=== PATIENT | male | born 1980 | race Caucasian/White ===

== ENCOUNTER 2024-06-18 13:53 | Emergency (ER) | payer BC ==
[2024-06-18] MEDS ORDERED: KETOROLAC 30 MG/ML INJ ONE (14:11)
[2024-06-18] MEDS ORDERED: MORPHINE 4 MG/ML SYR ONE (14:11)
[2024-06-18] MEDS ORDERED: ONDANSETRON 4 MG/2 ML VIAL ONE (14:11)
[2024-06-18] MEDS ORDERED: NA CHLORIDE 0.9% 1,000 ML ONE (14:12)
[2024-06-18 14:25] LABS: Absolute Eosinophils 0.1 K/uL (0-0.5); Absolute Lymphocytes (CBC) 1.2 K/uL (0.7-4.9); Absolute Monocytes 0.5 K/uL (0.1-1.3); Absolute Neutrophil 8.4 K/uL (1.8-8.0); Basophils % 0.4 % (0-1.3); Eosinophils % 0.8 % (0-4.4); Hematocrit 45.1 % (39.6-49.0); Hemoglobin 15.4 g/dL (13.6-17.9); MCH 28.9 pg (27.0-35.0); MCHC 34.1 g/dL (32.0-36.0); MCV 84.6 fL (80-100); MPV 8.4 fL (7.6-11.3); Monocytes % 4.7 % (3.3-12.3); Neutrophils % 82.1 % (41.7-73.7); Nucleated Red Blood Cells % 0.1 % (0-0); Platelets 195 thou/uL (152-406); RBC Red Blood Cell Count 5.32 M/uL (4.33-5.43); Red Cell Distribution Width 13.2 % (12.1-15.2)
[2024-06-18 14:41] LABS: Albumin 4.3 g/dL (3.4-5.0); Albumin/Globulin Ratio 1.5 (1.1-1.8); Bilirubin Total 0.5 mg/dL (0.2-1.0); Globulin 2.9 g/dL (2.3-3.5); Protein, Total 7.2 g/dL (6.4-8.2)
--- NOTE | 2024-06-18 15:25 | RAD REPORT ---
EXAM DESCRIPTION: CT - Stone Protocol - 06/18/2024 2:41 pm CLINICAL HISTORY: Abdominal pain. Left flank pain COMPARISON: None. TECHNIQUE: Computed axial tomography of the abdomen pelvis was obtained without oral or IV contrast. Lack of IV and oral contrast limits evaluation of solid organs, appendix, bowel, and vessels. Lisa l reformatted images were obtained and reviewed. All CT scans are performed using dose optimization technique as appropriate and may include automated exposure control or mA/KV adjustment according to patient size. FINDINGS: Small calculus right kidney. No hydronephrosis. Multiple left renal calculi. Mild to moderate hydronephrosis. 2 millimeter calculus mid left ureter. Additional 5 millimeter calculus lies adjacent to this. The liver, spleen, pancreas and adrenals appear grossly normal There is no evidence of diverticulitis. The appendix appears normal Small umbilical hernia IMPRESSION: Left ureteral calculi resulting in mild to moderate hydronephrosis
[2024-06-18] MEDS ORDERED: HYDROMORPHONE HCL 0.5 MG/0.5 ML INJ ONE (15:43)
[2024-06-18 17:16] LABS: Specific Gravity 1.022 (1.005-1.030); Sqamous Epithelial None Seen /HPF (None Seen); Urine Bacteria None Seen /HPF (<20); Urine Bilirubin NEGATIVE (Negative); Urine Blood 3+ (Negative); Urine Clarity Turbid (Clear); Urine Color Light-Yellow (Yellow); Urine Culture Reflex Order NOT NEEDED; Urine Glucose NEGATIVE (Negative); Urine Ketones NEGATIVE (Negative); Urine Microscopic Reflex YN ORDER UMIC; Urine Mucus 1+ /HPF (None Seen); Urine Nitrite NEGATIVE (Negative); Urine Protein TRACE (Negative); Urine RBC >50 /HPF (None Seen); Urine Urobilinogen Normal (Normal); Urine WBC <5 /HPF (<5)
--- NOTE | 2024-06-18 17:24 | ER ---
Nurse's Notes [facility] Name: Raymon Friedman Age: 44 yrs Sex: Male : 1980 Arrival Date: 06/18/2024 Time: 13:53 Bed 16 Private MD: Diagnosis: Calculus of kidney with calculus of ureter Presentation: 06/18 14:03 Chief complaint: Spouse and/or significant other states: patient has a history of ap3 kidney stones, and has been having left flank and left lower abdominal pain since 1000 this morning. patient also has been having nausea and vomiting along with the pain. Coronavirus screen: At this time, the client does not indicate any symptoms associated with coronavirus-19. Ebola Screen: No symptoms or risks identified at this time. Initial Sepsis Screen: Does the patient meet any 2 criteria? No. Patient's initial sepsis screen is negative. Does the patient have a suspected source of infection? No. Patient's initial sepsis screen is negative. Risk Assessment: Do you want to hurt yourself or someone else? Patient reports no desire to harm self or others. Onset of symptoms was June 18, 2024 at 10:00. 14:03 Method Of Arrival: Ambulatory ap3 14:03 Acuity: DMITRIY 3 ap3 Triage Assessment: 14:05 General: Appears uncomfortable, Behavior is calm, cooperative, appropriate for age. ap3 Pain: Complains of pain in left lower abdomen, left flank Pain currently is 10 out of 10 on a pain scale. Neuro: Level of Consciousness is awake, alert, obeys commands, Oriented to person, place, time, situation, Appropriate for age. Cardiovascular: Patient's skin is warm and dry. Respiratory: Airway is patent Respiratory effort is even, unlabored, Respiratory pattern is regular, symmetrical. GI: Reports nausea, vomiting. : Reports pain in left flank(s). Historical: - Allergies: 14:05 No Known Allergies; ap3 - PMHx: 14:05 Kidney stone; ap3 - Immunization history:: Client reports receiving the 2nd dose of the Covid vaccine. - Infectious Disease History:: Denies. - Social history:: Smoking status: Patient denies any tobacco usage or history of. Screenin: [facility] ED Fall Risk Assessment (Adult) History of falling in the last 3 months, db including since admission No falls in past 3 months (0 pts) Confusion or Disorientation No (0 pts) Intoxicated or Sedated No (0 pts) Impaired Gait No (0 pts) Mobility Assist Device Used No (0 pt) Altered Elimination No (0 pt) Score/Fall Risk Level 0 - 2 = Low Risk Oriented to surroundings, Maintained a safe environment. Abuse screen: Denies threats or abuse. Denies injuries from another. Nutritional screening: No deficits noted. Tuberculosis screening: No symptoms or risk factors identified. Assessment: 15:43 Reassessment: PT AMBULATORY TO RESTROOM . INSTRUCTED TO OBTAIN URINE SPECIMEN. db Vital Signs: 14:03 BP 139 / 92; Pulse 72; Resp 17; Temp 98.2; Pulse Ox 100% ; Weight 82.55 kg; Height 5 ap3 ft. 7 in. ; Pain 10/10; 15:00 BP 118 / 78; Pulse 80; Resp 16; Pulse Ox 100% on R/A; db 15:30 BP 118 / 79; Pulse 79; Resp 16; Pulse Ox 97% on R/A; db 16:00 BP 127 / 91; Pulse 86; Resp 16; Pulse Ox 96% on R/A; db 16:30 BP 132 / 90; Pulse 86; Resp 16; Pulse Ox 96% on R/A; db 17:00 BP 124 / 84; Pulse 77; Resp 16; Pulse Ox 96% on R/A; db 14:03 Body Mass Index 28.50 (82.55 kg, 170.18 cm) ap3 14:03 Pain Scale: Adult ap3 ED Course: 13:56 Patient arrived in ED. im 13:57 Theresa Tinoco [facility]NP-C [facility]. kb 13:57 Yariel Khanna MD is Attending Physician. kb 14:05 Triage completed. ap3 14:09 Kathie Wyatt, AUGUSTINE is Primary Nurse. db 14:18 Inserted saline lock: 20 gauge in right antecubital area, using aseptic technique. ld1 Blood collected. Flushed with 10 mL NS. 14:21 Patient has correct armband on for positive identification. Bed in low position. Call db light in reach. Side rails up X 1. Pulse ox on. NIBP on. Pillow given. 14:42 CT Stone Protocol In Process Unspecified. EDMS 16:00 Urine collected: clean catch specimen. db Administered Medications: 14:06 Drug: NS 0.9% IV 1000 ml IV at 1 bolus Per protocol; 1000 mL bolus Route: IV; Rate: 1 db bolus; Site: right antecubital; 15:47 Follow up: Response: No adverse reaction; IV Status: Completed infusion; IV Intake: db 1000ml 14:08 Drug: Ondansetron IVP 4 mg IVP once; over 2 minutes Route: IVP; Site: right antecubital;db 14:10 Drug: TORadol - Ketorolac IVP 15 mg IVP once Route: IVP; Site: right antecubital; db 14:10 Drug: morphine IVP or IV 4 mg IVP once over 4 mins Route: IVP; Infused Over: 4 mins; db Site: right antecubital; 16:05 Drug: HYDROmorphone IVP 0.5 mg IVP once Route: IVP; Site: left antecubital; db 17:35 Drug: [place] PO 10 mg-325 mg 1 tabs PO once Route: PO; db Medication: 14:21 VIS not applicable for this client. db Intake: 15:47 IV: 1000ml; Total: 1000ml. db Outcome: 17:23 Discharge ordered by . andrés 17:39 Discharged to home ambulatory, with family, tl4 17:39 Condition: stable 17:39 Discharge instructions given to patient, Instructed on discharge instructions, follow up and referral plans. medication usage, Demonstrated understanding of instructions, follow-up care, medications, Prescriptions given X 1, 17:39 Patient left the ED. tl4 Signatures: Dispatcher [employer] EDAZ Theresa Tinoco, DARIUS-C SECURITY SUPERVISOR-Nneka Broussard RN RN ap3 Trish Peres RN RN ld1 Kathie Wyatt, RN RN Jenny Rodriguez Toni RN RN tl4
--- NOTE | 2024-06-18 17:24 | EDPHYS ---
Physician Documentation [facility] Name: Raymon Friedman Age: 44 yrs Sex: Male : 1980 Arrival Date: 06/18/2024 Time: 13:53 Bed 16 Private MD: ED Physician Yariel Khanna HPI: 06/18 15:42 This 44 yrs old Male presents to ER via Ambulatory with complaints of Possible Kidney kb Stone. 15:42 Pt is a 44 year old male who presents for left flank pain that started this morning. kb States he had lithotripsy in March and has been passing small stones since then. States he passed 2 stones earlier this week. Denies fever. States he has had nausea and vomiting due to pain. . Historical: - Allergies: 14:05 No Known Allergies; ap3 - PMHx: 14:05 Kidney stone; ap3 - Immunization history:: Client reports receiving the 2nd dose of the Covid vaccine. - Infectious Disease History:: Denies. - Social history:: Smoking status: Patient denies any tobacco usage or history of. ROS: 15:41 Constitutional: As per HPI kb Exam: 15:41 Constitutional: This is a well developed, well nourished patient who is awake, alert, kb and in no acute distress. Head/Face: Normocephalic, atraumatic. ENT: Moist Mucous membranes Cardiovascular: Regular rate Respiratory: Respirations even and unlabored. No increased work of breathing. Talking in full sentences Skin: Warm, dry with normal turgor. Normal color. MS/ Extremity: Pulses equal, no cyanosis. Neurovascular intact. Full, normal range of motion. Neuro: Awake and alert, GCS 15, oriented to person, place, time, and situation. Moves all extremities. Normal gait. 15:41 Abdomen/GI: Palpation: mild abdominal tenderness, in the anterior aspect of left lateral abdomen, 15:41 Back: CVA tenderness, that is mild, is noted on the left, Vital Signs: 14:03 BP 139 / 92; Pulse 72; Resp 17; Temp 98.2; Pulse Ox 100% ; Weight 82.55 kg; Height 5 ap3 ft. 7 in. ; Pain 10/10; 15:00 BP 118 / 78; Pulse 80; Resp 16; Pulse Ox 100% on R/A; db 15:30 BP 118 / 79; Pulse 79; Resp 16; Pulse Ox 97% on R/A; db 16:00 BP 127 / 91; Pulse 86; Resp 16; Pulse Ox 96% on R/A; db 16:30 BP 132 / 90; Pulse 86; Resp 16; Pulse Ox 96% on R/A; db 17:00 BP 124 / 84; Pulse 77; Resp 16; Pulse Ox 96% on R/A; db 14:03 Body Mass Index 28.50 (82.55 kg, 170.18 cm) ap3 14:03 Pain Scale: Adult ap3 MDM: 13:57 Patient medically screened. kb 15:42 Differential diagnosis: uti, pyelonephritis, kidney stone, diverticulitis. Data kb reviewed: vital signs, nurses notes. Historians other than the Patient: Spouse/Significant Other: . 17:22 Consideration of Admission/Observation Escalation of care including kb admission/observation considered. admission considered but pain is controlled at this time. Pt has hydrocodone at home for pain prescribed by urologist in [place]. Pt will follow up with him. . Counseling: I had a detailed discussion with the patient and/or guardian regarding the historical points, exam findings, and any diagnostic results supporting the discharge/admit diagnosis, lab results, radiology results, the need for outpatient follow up, a urologist, to return to the emergency department if symptoms worsen or persist or if there are any questions or concerns that arise at home. 06/18 14:03 Order name: CBC with Diff; Complete Time: 14:42 kb 06/18 14:03 Order name: CMP; Complete Time: 14:42 kb 06/18 14:03 Order name: Lipase; Complete Time: 14:42 kb 06/18 14:03 Order name: Urinalysis w/ reflexes; Complete Time: 17:16 kb 06/18 14:03 Order name: CT Stone Protocol; Complete Time: 15:27 kb 06/18 14:03 Order name: IV Saline Lock; Complete Time: 14:18 kb 06/18 14:03 Order name: Labs collected and sent; Complete Time: 14:18 kb 06/18 16:24 Order name: Misc. Order: obtain urine please; Complete Time: 16:34 kb Administered Medications: 14:06 Drug: NS 0.9% IV 1000 ml IV at 1 bolus Per protocol; 1000 mL bolus Route: IV; Rate: 1 db bolus; Site: right antecubital; 15:47 Follow up: Response: No adverse reaction; IV Status: Completed infusion; IV Intake: db 1000ml 14:08 Drug: Ondansetron IVP 4 mg IVP once; over 2 minutes Route: IVP; Site: right antecubital;db 14:10 Drug: TORadol - Ketorolac IVP 15 mg IVP once Route: IVP; Site: right antecubital; db 14:10 Drug: morphine IVP or IV 4 mg IVP once over 4 mins Route: IVP; Infused Over: 4 mins; db Site: right antecubital; 16:05 Drug: HYDROmorphone IVP 0.5 mg IVP once Route: IVP; Site: left antecubital; db 17:35 Drug: [place] PO 10 mg-325 mg 1 tabs PO once Route: PO; db Disposition: 19:11 Co-signature as Attending Physician, Yariel Khanna MD I reviewed the patient's care rt provided by the Advanced Practice Provider and agree with the diagnosis and treatment plan. Disposition Summary: 06/18/24 17:23 Discharge Ordered Notes: Location: Home kb Condition: Stable kb Diagnosis - Calculus of kidney with calculus of ureter kb Followup: kb - With: Emergency Department - When: As needed - Reason: Worsening of condition Followup: kb - With: Private Physician - When: 2 - 3 days - Reason: Recheck today's complaints, Continuance of care, Re-evaluation by your physician Discharge Instructions: - Discharge Summary Sheet kb - Kidney Stones, [id number] kb - Dietary Guidelines to Help Prevent Kidney Stones kb Forms: - Medication Reconciliation Form kb - Antibiotic Education kb - Prescription Opioid Use kb - Patient Portal Instructions kb - Leadership Thank You Letter kb Prescriptions: - Diclofenac Sodium 75 mg Oral tablet, delayed release (enteric coated) - take 1 tablet ORAL route 2 times per day As needed; 30 tablet; Refills: 0, kb Product Selection Permitted Signatures: Dispatcher [employer] Theresa Evans FNP-C FNP-Ckb Prokisch, Amanda RN RN ap3 Kathie Wyatt, RN RN db Yariel Khanna MD MD rt Corrections: (The following items were deleted from the chart) 14:04 14:04 CBC+H.LAB.BRZ ordered. EDUT EDMS 14:04 14:04 COMPREHENSIVE METABOLIC PANEL+C.LAB.BRZ ordered. EDMS EDMS 14: 14:04 LIPASE+C.LAB.BRZ ordered. EDMS EDMS 14: 14:04 Urinalysis+U.LAB.BRZ ordered. EDMS EDMS 14: 14:04 Stone Protocol+CT.RAD.BRZ ordered. EDMS EDMS
[2024-06-18] MEDS ORDERED: HYDROCODONE/APAP 10/325 TAB ONE (17:30)
[2024-06-18 18:01] VITALS: TEMP 98.2
[2024-06-18 18:08] VITALS: O2SAT 96
[2024-06-18 18:11] VITALS: BP 124/84
== END 2024-06-18 17:39 | disposition home or self-care (01) ==
LOC: ER 13:53
DX: N20.2 Calculus of kidney with calculus of ureter (principal); Z87.442 Personal history of urinary calculi
CPT/HCPCS: 85025; 81001; 36415; 83690; 80053; 76377; 74176; 99284; J1170; J2405; J7030